=== PATIENT | male | born 1970 | race Two or more races ===

== ENCOUNTER 2024-07-12 14:54 | Emergency (ER) | payer OTHER ==
[~2024-07-12] VITALS: Ht 157.5 cm; Wt 77.3 kg
[2024-07-12] MEDS ORDERED: BENA10TA PO (16:56)
[2024-07-12] MEDS ORDERED: ATOR40TA75 PO (16:56)
[2024-07-12] MEDS ORDERED: TRUL0.5I SC (16:56)
[2024-07-12] MEDS ORDERED: NAPR-837 PO (17:01)
[2024-07-12] MEDS ORDERED: CYCL5TAB4 PO (17:01)
[2024-07-12] MEDS: IBUPROFEN 600MG TAB PO ONE (17:13)
[2024-07-12 17:21] VITALS: BP 162/87; TEMP 98.8; O2SAT 100
== END 2024-07-12 17:24 | disposition home or self-care (01) ==
LOC: M ED 14:54 → EDBD 14:54 → M ED 17:24
DX: S40.021A Contusion of right upper arm, initial encounter (principal); Y92.9 Unspecified place or not applicable; Y93.9 Activity, unspecified; Y99.9 Unspecified external cause status; V49.40XA Driver injured in collision with unspecified motor vehicles in traffic accident, initial encounter; E11.9 Type 2 diabetes mellitus without complications; I10 Essential (primary) hypertension; E78.5 Hyperlipidemia, unspecified; Z79.4 Long term (current) use of insulin; Z79.899 Other long term (current) drug therapy